=== PATIENT | female | born 1995 | race Two or more races ===

== ENCOUNTER 2017-11-17 21:21 | Emergency (ER) | payer MEDICAID, OTHER ==
[~2017-11-17] VITALS: Ht 165.1 cm; Wt 68.0 kg
[2017-11-17 21:30] VITALS: BP 133/75
== END 2017-11-17 22:54 | disposition home or self-care (01) ==
LOC: ER 21:22
DX: J02.8 Acute pharyngitis due to other specified organisms (principal); B97.89 Other viral agents as the cause of diseases classified elsewhere
CPT/HCPCS: A4606; Z7610